=== PATIENT | male | born 2005 | race African-American/Black ===

== ENCOUNTER 2024-12-29 11:08 | Outpatient (CLI) | payer OTHER, SELFPAY ==
--- NOTE | ~2024-12-29 | MR_ITS ---
EXAMINATION: MR brain/brain stem wo con DATE: 12/29/2024 12:02 INDICATION: Other disorders of pituitary gland. Headache. TECHNIQUE: Magnetic resonance imaging (MRI) of the brain and brainstem was performed without intravenous contrast. COMPARISON: None. FINDINGS: There is an empty sella. There is no intracranial hemorrhage, acute infarction, or abnormal intracranial mass lesion. The ventricles are normal in size. There is mild mucosal thickening in the paranasal sinuses. The orbits are normal. There is a trace right mastoid effusion. IMPRESSION: 1. Empty sella. Reviewed, dictated and finalized at location K. IMPRESSION: 1. Empty sella.
== END 2024-12-29 11:09 | disposition home or self-care (01) ==
LOC: GOSHIMG 11:09
PROVIDERS: PCP Family Medicine; Visit Provider Family Medicine
DX: E23.6 Other disorders of pituitary gland (principal)
CPT/HCPCS: 70551

== ENCOUNTER 2025-01-26 16:09 | Outpatient (CLI) | payer OTHER, SELFPAY ==
--- OUTSIDE RECORDS SUMMARY | 2025-01-26 16:12 | XMS_ITS | Encounter Summary ---
Author Organization [facility] Address [address] [place] [address] Care Team Providers Care Wellness Educator Name Role Phone Ally Patterson MD Primary Care Provider [phone] Encounter Details Date Type Department Care Team (Late st Contact Info) Description 03/17/2024 [employer] Message Enc [facility] Family Medicine [facility] [address] [place] [address] Ally Patterson MD [address] [place] [address] Covid 19-doctors note Social History Tobacco Use Types Packs/Day Years Used Date Smoking Tobacco: Never Smokeless Tobacco: Never Alcohol Use Standard Drinks/Week Comments No 0 (1 standard drink = 0.6 oz pur e alcohol) PHQ-2 Answer Date Recorded Patient Health Questionnaire-2 Score 0 02/17/2024 Sex and Gender Information Value Date Recorded Sex Assigned at Male 05/31/2024 11:15 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
--- OUTSIDE RECORDS SUMMARY | 2025-01-26 16:12 | XMS_ITS | Clinical Summary ---
Author Organization [facility] Address [address] [place] [address] Care Team Providers Care Urban Forester Name Role Phone Sanjay Forrester MD Primary Care Provider [phone] Allergies No known active allergies Social History Tobacco Use Types Packs/Day Years Used Date Smoking Tobacco: Never Assessed Personal Safety Answer Date Recorded Have you ever been in or are you currently in a harmful physical or emotional relationship or is someone making you feel afraid or unsafe? 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 Gender Identity Not on file Sexual Orientation Not on file Last Filed Vital Signs Vital Sign Reading Time Taken Comments Blood Pressure 125/87 02/17/2024 3:00 PM CDT Pulse 80 02/17/2024 3:00 PM CDT Temperature 36.9 C (98.4 F) 02/17/2024 12:11 PM CDT Respiratory Rate 15 02/17/2024 3:00 PM CDT Oxygen Saturation 97% 02/17/2024 3:00 PM CDT Inhaled Oxygen Concentration - - Weight 66.5 kg (146 lb 9.7 oz) 02/17/2024 12:11 PM CDT Height 175.3 cm (5' 9) 02/17/2024 12:11 PM CDT Body Mass Index 21.65 02/17/2024 12:11 PM CDT Plan of Treatment Health Maintenance Due Date Last Done Comments Depression Screening 2004 Hepatitis C Screening 2004 Meningococcal B Vaccine (1 o f 2 - Standard) 2020 Regular Well Visit/Exam 18-64 2022 Influenza Vaccine (#1) 2024 DTaP/Tdap/Td Vaccine (7 - Td or Tdap) 11/24/2025 11/25/2015, 01/10/2009, 01/10/2009, Additional history exists Hepatitis B Screening Completed 06/10/2005 , 06/10/2005, 03/17/2005, Additional history exists Pneumococcal vaccine <65 Completed 006, 09/22/2005, 06/10/2005, Additional history exists Varicella Vaccines Completed 01/10/2009, 0 01/10/2009, 09/22/2005, Additional history exists HPV Vaccines Completed 11/24/2016, 11/25/2015 Meningococcal Vaccine Completed 10/03/2021 , 02/05/2021, 11/25/2015 Insurance [address] [place] [address] Care Teams Urban Forester Relationship Specialty Start Date End Date Sanjay Forrester MD PCP - General Family Practice 02/17/24
--- OUTSIDE RECORDS SUMMARY | 2025-01-26 16:12 | XMS_ITS | Clinical Summary ---
Author Organization [facility] Address [facility] access [facility] [place] [address] Care Team Providers Care Artificial Snow Making Machine Operator Name Role Phone Ally Patterson MD Primary Care Provider Allergies No known active allergies Medications pantoprazole EC (PROTONIX) 20 MG tabletIndication s:Epigastric pain Take 1 tablet (20 mg total) by mouth daily. 30 tablet 2 4 Active Additional Information Patient not taking.Reported on 05/05/2024 dicyclomine (BENTYL) 10 MG capsuleIndicatio ns:Irregular bowel habits,Periumbil ical pain Take 1 capsule (10 mg total) by mouth 2 (two) times daily as needed. 60 capsule 1 5 Active pantoprazole EC (PROTONIX) 40 MG tabletIndication s:Gastroesophage al reflux disease with esophagitis without hemorrhage Take 1 tablet (40 mg total) by mouth daily. 30 tablet 2 5 08/30/19 26 Active pantoprazole EC (PROTONIX) 40 MG tabletIndication s:Gastroesophage al reflux disease with esophagitis without hemorrhage Take 1 tablet (40 mg total) by mouth daily. 30 tablet 2 5 08/30/19 26 Active Active Problems Problem Noted Date Diagnosed Date Hematochezia 05/10/2024 Irregular bowel habits 05/10/2024 Nausea 05/10/2024 Periumbilical pain 05/10/2024 Flat feet, bilateral 06/27/2015 Left ankle injury 06/27/2015 Allergic rhinitis due to pollen 10/12/2014 Overview (08/22/2021): Overview: 10/12/14 OTC Episodic cluster headache 10/12/2014 Overview (08/22/2021): Overview: 10/12/14 Symptomatic treatment. Monitor. Recurrent epistaxis 10/12/2014 Overview (08/22/2021): Overview: 10/12/14 Referred to ENT Resolved Problems Problem Noted Date Diagnosed Date Resolved Date Well child visit 07/17/2013 08/25/2021 Encounters Date Type Department Care Team Description 11/10/2024 8:36 PM CDT - 11/10/2024 10:07 PM CDT Emergency [facility] [place] [address] Gunjan Quinonez PA Headache Discharge Disposition: Home or Self Care (Routine Discharge) 11/10/2024 Travel from Last 3 Months Immunizations Immunization Administration Dates Next Due Dtap (Generic) 01/10/2009, 6,06/10/2005,03/17/2005 ,2004 Dtap/Hep B/Ipv 06/10/2005,03/17/2005,2004 HPV 11/24/2016 HPV GARDASIL 9-VALENT 11/25/2015 Hepatitis A (Generic) 01/10/2007,03/19/2006 Hepatitis B (Generic: Adult) 06/10/2005,03/17/20 05,2004,2004 Hib Vaccine, Prp-Omp 09/22/2005,03/17/2005,12/23 MMR (Generic) 01/10/2009,09/22/2005 Meningococcal (Menactra) 10/03/2021 Meningococcal Vac A,C,Y,W-135 Sc 11/25/2015 Pneumococcal (Pneumovax 23) 09/22/2005, 6,03/17/2005,2004 Polio Ipv (Generic) 01/10/2009,06/10/2005,2004,2004 Tdap (Generic) 11/25/2015 Varicella Vaccine 01/10/2009,09/22/2005 Family History Relation Status Comments Father Alive Mother Alive Social History Tobacco Use Types Packs/Day Years Used Date Smoking Tobacco: Never Smokeless Tobacco: Never Tobacco Cessation:Counseling Given: No Alcohol Use Standard Drinks/Week Comments No 0 (1 standard drink = 0.6 oz pur e alcohol) PHQ-2 Answer Date Recorded Patient Health Questionnaire-2 Score 0 05/05/2024 Sex and Gender Information Value Date Recorded Sex Assigned at Male 05/31/2024 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 Legal Sex Male 7:21 PM CDT Gender Identity Not on file Sexual Orientation Not on file Last Filed Vital Signs Vital Sign Reading Time Taken Comments Blood Pressure 144/70 11/10/2024 6:44 PM CDT Pulse 77 11/10/2024 6:44 PM CDT Temperature 37.1 C (98.8 F) 11/10/2024 6:44 PM CDT Respiratory Rate 16 11/10/2024 6:44 PM CDT Oxygen Saturation 99% 11/10/2024 6:44 PM CDT Inhaled Oxygen Concentration - - Weight 68 kg (150 lb) 11/10/2024 6:44 PM CDT Height 176.5 cm (5' 9.5) 11/10/2024 6:44 PM CDT Body Mass Index 21.83 11/10/2024 6:44 PM CDT Plan of Treatment Health Maintenance Due Date Last Done Comments Annual Physical 09/13/2007 Meningococcal B Vaccine (1 of 2 - Standard) 2020 Hepatitis C 2022 COVID-19 Vaccine ( - season) 2024 DTaP, Tdap and Td Vaccines (7 - Td or Tdap) 11/24/2025 11/25/2015, 01/10/2009, 03/19/2006, Additional history exists Hepatitis B Vaccines Completed 06/10/2005, 06/10/2005, 03/17/2005, Additional history exists Pneumococcal Vaccine: Pediatrics (0 to 5 Years) and At-Risk Patients (6 to 49 Years) Aged Out 09/22/2005, 06/10/2005, 03/17/2005, Additional history exists No longer eligible based on patient's age to complete this topic HPV Vaccines Completed 11/24/2016, 11/25/2015 Meningococcal Vaccine Completed 10/03/2021, 016 PHQ-2 (Physician [place]) Completed 05/05/2024 RSV Immunizations Under 20 Months Aged Out No longer eligible based on patient's age to complete this topic Insurance [facility] Care Teams Artificial Snow Making Machine Operator Relationship Specialty Start Date End Date Ally Patterson MD [facility] [place] [address] PCP - General FAMILY PRACTICE 05/01/21
--- OUTSIDE RECORDS SUMMARY | 2025-01-26 16:12 | XMS_ITS | Clinical Summary ---
Author Organization [facility] Address [address] [place] [address] Phone [email or web address] Care Team Providers Care Appraiser Auditor Name Role Phone Unavailable Primary Care Provider Unavailabl e Allergies No known active allergies Medications No known medications Active Problems No known active problems Immunizations Immunization Administration Dates Next Due DTAP, Unspecified (CVX-107) 01/10/2009,1 05/19/2005,06/10/2005,03/17,2004 DTaP-Hep B-IPV (PEDIARIX)(CVX-110) 06/10/2005,,2004 DTaP-IPV (KINRIX,Quadracel) (CVX-130) ,06/10/2005,03/17/2005,12/23 HPV 9 (Gardasil 9) (CVX-165) 11/25/2015 HPV, Unspecified (CVX-137) 11/24/2016 Hep A, Unspecified (CVX-85) 01/10/2007, 6 Hepatitis B (ENGERIX-B:GSK)(RECOMBIVAX-HB:MERCK) (CVX-43) 06/10/2005,03/17/2005,2004,09/12 Hib (PedvaxHIB) (PRP-OMP) (CVX-49) 09/22/2005,,2004 IPV (IPOL) (CVX-10) 01/10/2009 MMR (M-M-R-II,PRIORIX) (TWO VIALS-MUST MIX) (CVX-03) 01/10/2009,09/22/2005 MMRV (ProQuad) (TWO VIALS-MU ST MIX) (CVX-94) 01/10/2009,09/22/2005 Meningococcal (Menactra) MCV 4P (CVX-114) 10/03/2021,02/05/2021,11/25/2015 Meningococcal MCV4, unspecif ied (CVX-147) 11/25/2015 Pneumococcal (Pneumovax 23) Polysaccharide PPV23 (CVX-33) 09/22/2005,06/10/2005,03/17/2005,12/23 Pneumococcal (Prevnar7) conj ugate PCV7 (CVX-100) 09/22/2005,06/10/2005,03/17/2005,12/23 Tdap (ADACEL BOOSTRIX) (CVX-115) 11/25/2015 Varicella (VARIVAX) (TWO VIA LS-MUST MIX) (CVX-21) 01/10/2009,09/22/2005 Social History Tobacco Use Types Packs/Day Years Used Date Smoking Tobacco: Never Smokeless Tobacco: Never Tobacco Cessation:Counseling Given: Not Answered Alcohol Use Standard Drinks/Week Comments Never 0 (1 standard drink = 0.6 oz pur e alcohol) Intimate Partner Violence Answer Date R ecorded Insults You Not on file 06/15/2021 Threatens You Not on file 06/15/2021 Screams at You Not on file 06/15/2021 Physically Hurt Not on file 06/15/2021 Intimate Partner Violence Score Not on file 06/15/2021 Alcohol Use Answer Date Recorded Alcohol Use Status Never 05/14/2022 Depression Answer Date Recorded PHQ Total Score Not on file 07/10/2023 Stress Answer Date Recorded Stress in your Life Not on file 03/01/2024 Dealing with Stress 3 03/01/2024 Sex and Gender Information Value Date Recorded Sex Assigned at Not on file 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 Gender Identity Not on file Sexual Orientation Not on file Last Filed Vital Signs Vital Sign Reading Time Taken Comments Blood Pressure 96/70 07/06/2022 1:04 PM CDT Pulse 73 07/06/2022 1:04 PM CDT Temperature 37.3 C (99.1 F) 07/06/2022 1:04 PM CDT Respiratory Rate 20 07/06/2022 1:04 PM CDT Oxygen Saturation 99% 07/06/2022 1:04 PM CDT Inhaled Oxygen Concentration - - Weight 71.9 kg (158 lb 9.6 oz) 07/06/2022 1:04 P M CDT Height 176.5 cm (5' 9.5) 07/06/2022 1:04 PM CDT Body Mass Index 23.09 07/06/2022 1:04 PM CDT Plan of Treatment Health Maintenance Due Date Last Done Comments Dental Cleaning/Exam 2004 HIV Screening 2004 Hepatitis C Screening 2004 Men B Immunization (1 of 2 - Standard) 2020 Annual Preventive Exam 2022 Hep B Infection Screening - Triple Screen 2022 Covid-19 Immunization ( season) 2024 Influenza Immunization (#1) 2024 Tetanus Diphtheria and Pertussis Immunization (7 - Td or Tdap) 11/24/2025 11/25/2015, 01/10/2009, 01/10/2009, Additional history exists Hepatitis B Immunization Completed 006, 06/10/2005, 03/17/2005, Additional history exists HIB Immunization Completed 09/22/2005, , 2004 Pneumococcal Immunization Aged Out 2005, 09/22/2005, 06/10/2005, Additional history exists No longer eligible based on patient's age to complete this topic Hepatitis A Immunization Completed 01/10/2007, 02/25 Polio Immunization Completed 01/10/2009, 0 01/10/2009, 06/10/2005, Additional history exists Varicella Immunization Completed 9, 01/10/2009, 09/22/2005, Additional history exists HPV Immunization Completed 11/24/2016, 11/25/2015 Meningococcal Immunization Completed 10/03, 02/05/2021, 11/25/2015, Additional history exists Insurance [employer] NO COPAY NB
[2025-01-26 17:11] LABS: Free T4 Free Thyroxine 1.21 ng/dL (0.78-2.19)
[2025-01-26 17:22] LABS: Thyroid Stimulating Hormone 0.509 uIU/mL (0.465-4.680)
[2025-01-27 07:09] LABS: FSH 7.1 mIU/mL (1.5-12.4); LH 8.5 mIU/mL (1.7-8.6)
== END 2025-01-26 16:10 | disposition home or self-care (01) ==
PROVIDERS: PCP Family Medicine; Visit Provider Family Medicine
DX: E23.6 Other disorders of pituitary gland (principal)
CPT/HCPCS: 36415; 82533; 83001; 83002; 84146; 84305; 84439; 84443

== ENCOUNTER 2025-03-09 14:41 | Outpatient (CLI) | payer OTHER, SELFPAY ==
[2025-03-09 15:27] LABS: Hematocrit 45.1 % (42.0-52.0); Hemoglobin 14.6 g/dL (14.0-18.0); Mean Corpuscular HGB Conc 32.4 g/dl (32-36); Mean Corpuscular Hemoglobin 29.6 pg (26-34); Mean Corpuscular Volume 91.5 fl (80-100); Platelet Count Result 211 k/mm3 (150-375); Red Blood Count 4.93 M/mm3 (4.6-6.20); White Blood Count 5.8 K/mm3 (4.5-10.0)
[2025-03-09 15:36] LABS: Alanine Aminotransferase 13 U/L (6-50); Albumin Level 4.6 g/dL (3.5-5.1); Alkaline Phosphatase 57 U/L (38-126); Anion Gap 8 mmol/L (4-12); Aspartate Amino Transferase 23 U/L (17-59); Bilirubin,Total 1.4 mg/dL (0.2-1.3); Blood Urea Nitrogen 17 mg/dL (9-20); Calcium 9.1 mg/dL (8.4-10.2); Carbon Dioxide 25 mmol/L (22-30); Chloride 104 mmol/L (98-107); Estimated Glomerular Filt Rate > 60; Glucose 88 mg/dL (65-110); Magnesium 2.2 mg/dL (1.6-2.3); Potassium 3.8 mmol/L (3.4-5.0); Sodium 137 mmol/L (137-145); Total Protein 7.7 g/dL (6.3-8.2)
--- OUTSIDE RECORDS SUMMARY | 2025-03-09 19:04 | XMS_ITS | Encounter Summary ---
Author Organization [facility] Address [address] [place] [address] Care Team Providers Care Powerhouse Attendant Name Role Phone Ally Patterson MD Primary Care Provider [phone] Encounter Details Date Type Department Care Team (Late st Contact Info) Description 03/17/2024 Balaya Message Enc [facility] Medical Group Family Medicine [facility] [address] [place] [address] Ally Patterson MD [address] [place] [address] Covid 19-doctors note Social History Tobacco Use Types Packs/Day Years Used Date Smoking Tobacco: Never Smokeless Tobacco: Never Alcohol Use Standard Drinks/Week Comments No 0 (1 standard drink = 0.6 oz pur e alcohol) PHQ-2 Answer Date Recorded Patient Health Questionnaire-2 Score 0 02/17/2024 Sex and Gender Information Value Date Recorded Sex Assigned at Male 05/31/2024 11:15 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
--- OUTSIDE RECORDS SUMMARY | 2025-03-09 19:04 | XMS_ITS | Clinical Summary ---
Author Organization [facility] Address [address] [place] [address] Care Team Providers Care Secretary Specialist Name Role Phone Ian Juarez MD Primary Care Provider [phone] Source Comments [facility],non-owned Affiliates and Associated Physician Practices is amultiple site organization consisting of ambulatory clinics and hospital sitesin [place], [place], [place] and [place]. This disclosure is being madepursuant to the Care Everywhere program and may not contain all information available regarding this patient. Last updated 18.[facility] Allergies No known active allergies Medications * Be aware that medications may not be up to date on this document. Alwaysverify current medications with the patient. No known medications Active Problems Problem Noted Date Diagnosed Date Left ankle injury 06/27/2015 Flat feet, bilateral 06/27/2015 Recurrent epistaxis 10/12/2014 Overview (10/21/2014): 10/12/14 Referred to ENT Allergic rhinitis due to pollen 10/12/2014 Overview (10/21/2014): 10/12/14 OTC Episodic cluster headache 10/12/2014 Overview (10/21/2014): 10/12/14 Symptomatic treatment. Monitor. Immunizations Immunization Administration Dates Next Due DTAP/HEP B/IPV 06/10/2005,03/17/2005,2004 DTaP VACCINE IM (6wk-6yrs) 01/10/2009,03/19/2006 HEP A PEDS 2 DOSE 01/10/2007,03/19/2006 HEP B VACCINE, PED/ADOL 2004 HIB-PRP-OMP 3 DOSE 09/22/2005,03/17/2005, 005 Human Papilloma Virus Nineva lent Vaccine 11/25/2015 Human Papilloma Virus Vaccine 11/24/2016 MENINGOCOCCAL ACWY (MCV4P) VAC IM 10/03/2021,,11/25/2015 MMR 01/10/2009,09/22/2005 PNEUMOCOCCAL PCV7 CONJ, PEDS 09/22/2005, 06/10/2005,03/17/2005,12/23 POLIO IPV 01/10/2009 TDAP (7yrs+) 11/25/2015 VARICELLA 01/10/2009,09/22/2005 Family History Medical History Relation Name Comments Anesthesia Reaction Neg Hx Bleeding Disorders Neg Hx Childhood Hearing Disorder Neg Hx Social History Tobacco Use Types Packs/Day Years Used Date Smoking Tobacco: Never Smokeless Tobacco: Never Alcohol Use Standard Drinks/Week Comments No 0 (1 standard drink = 0.6 oz pur e alcohol) PHQ-2 Answer Date Recorded PHQ2 TOTAL SCORE 0 02/05/2021 Sex and Gender Information Value Date Recorded Sex Assigned at Not on file Legal Sex Male 1:55 PM BOILER 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 Gender Identity Not on file Sexual Orientation Not on file Last Filed Vital Signs Vital Sign Reading Time Taken Comments Blood Pressure 108/60 02/05/2021 12:41 PM CDT Pulse 75 11/21/2018 1:15 PM CDT Temperature 36.9 C (98.4 F) 04/30/2021 2:37 PM BOILER TUBE BLOWER Respiratory Rate 18 12/29/2016 2:40 PM CDT Oxygen Saturation 96% 04/30/2021 2:37 PM BOILER TUBE BLOWER Inhaled Oxygen Concentration - - Weight 68.1 kg (150 lb 3.2 oz) 04/30/2021 2:37 P M BOILER TUBE BLOWER Height 174.8 cm (5' 8.82) 02/05/2021 12:41 PM C DT Body Mass Index - - Plan of Treatment Upcoming Encounters Date Type Department Care Team (Late st Contact Info) Description 04/03/2025 2:20 PM BOILER TUBE BLOWER Office Visit [facility] - Endocrinology [address] [place] [address] Emily Doss MD [address] [place] [address] [place] [address] Health Maintenance Due Date Last Done Comments HIV SCREENING 09/13/2019 MENINGOCOCCAL (Group B) VACC INE SHARED DECISION-MAKING (1 of 2 - Standard) 2020 HEPATITIS C SCREENING 09/08/2022 DEPRESSION SCREENING 04/26/2024 COVID-19 VACCINE ( - 2023-2 5 season) 2024 INFLUENZA VACCINE (#1) 2024 DTAP/TDAP/TD VACCINES (7 - T d or Tdap) 11/24/2025 11/25/2015, 01/10/2009, 03/19/2006, Additional history exists ZOSTER VACCINE (1 of 2) 2054 HEPATITIS B VACCINE Completed 06/10/2005, 03/17/2005, 2004, Additional history exists HIB VACCINE Completed 09/22/2005, 02/25, 2004 PNEUMOCOCCAL VACCINE Completed 09/22/2005, 06/10/2005, 03/17/2005, Additional history exists HPV VACCINE Discontinued 11/24/2016, 11/25/2015 MENINGOCOCCAL GROUPS A/C/Y/W VACCINE Completed 10/03/2021, 02/05/2021, 11/25/2015 Goals Goal Patient Goal Type Associated Problems Recent Progress Patient-Stated? Author Use safety retraint in car Lifestyle On track( 020 9:16 AM CDT) Adan Snyder MA Insurance [facility] Care Teams Secretary Specialist Relationship Specialty Start Date End Date Ian Juarez MD [address] [place] [address] PCP - General Pediatrics 01/09/20
--- OUTSIDE RECORDS SUMMARY | 2025-03-09 19:04 | XMS_ITS | Clinical Summary ---
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
--- OUTSIDE RECORDS SUMMARY | 2025-03-09 19:04 | XMS_ITS | Clinical Summary ---
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
--- OUTSIDE RECORDS SUMMARY | 2025-03-09 19:04 | XMS_ITS | Clinical Summary ---
Author Organization [facility] Address [facility] [place] [address] Care Team Providers Care Store Warehouse Associate Name Role Phone Ally Patterson MD Primary Care Provider [phone] Allergies No known active allergies Medications pantoprazole [...] Resolved Date Well child visit 07/17/2013 08/25/2021 Immunizations Immunization Administration Dates Next Due Dtap [...] Sex Assigned at Male 05/31/2024 11:15 PM SUPERVISOR RECORDS CHANGE Legal Sex Male 7:21 PM CDT Gender [...] 2022 COVID-19 Vaccine ( - season) 2024 Influenza Adult (#1) 2025 DTaP, Tdap and Td Vaccines (7 - Td or Tdap) 11/24/2025 11/25/2015, 01/10/2009, 03/19/2006, Additional history exists Hepatitis B Vaccines Completed 06/10/2005, 06/10/2005, 03/17/2005, Additional history exists Pneumococcal Vaccine: Pediatrics (0 to 5 Years) and At-Risk Patients (6 to 49 Years) Aged Out 09/22/2005, 06/10/2005, 03/17/2005, Additional history exists No longer eligible based on patient's age to complete this topic Hepatitis A Vaccines Completed 01/10/2007, 03/19/20 06 HPV Vaccines Completed 11/24/2016, 11/25/2015 Meningococcal Vaccine Completed 10/03/2021, 016 PHQ-2 (Physician [place]) Completed 05/05/2024 RSV Immunizations Under 20 Months Aged Out No longer eligible based on patient's age to complete this topic Insurance [employer] Care Teams Store Warehouse Associate Relationship Specialty Start Date End Date Ally Patterson MD [address] [place] [address] PCP - General FAMILY PRACTICE 05/01/21
[2025-03-12 15:09] LABS: Deamidated Gliadin Abs, IgA 3 units (0-19); Deamidated Gliadin Abs, IgG 2 units (0-19); Immunoglobulin A, Qn 111 mg/dL (90-386)
== END 2025-03-09 14:42 | disposition home or self-care (01) ==
LOC: ANHLAB 14:42
PROVIDERS: PCP Family Medicine; Visit Provider Family Medicine
DX: K58.9 Irritable bowel syndrome, unspecified (principal); G43.909 Migraine, unspecified, not intractable, without status migrainosus; E23.6 Other disorders of pituitary gland; Z00.00 Encounter for general adult medical examination without abnormal findings; M54.50 Low back pain, unspecified
CPT/HCPCS: 36415; 80053; 82306; 82784; 83735; 85027; 86231; 86258